=== PATIENT | male | born 1945 | race Caucasian/White ===

== ENCOUNTER 2022-07-20 10:13 | Emergency (ER) | payer OTHER, SELFPAY ==
[2022-07-20] MEDS ORDERED: Morphine 4 MG/ML VIAL ONE (10:30)
[2022-07-20] MEDS ORDERED: HYDROcodone/Acetaminophen 5/325 mg Tablet ONE (11:36)
== END 2022-07-20 11:49 | disposition home or self-care (01) ==
LOC: NAV ERS 10:13
DX: S43.014A Anterior dislocation of right humerus, initial encounter (principal); I10 Essential (primary) hypertension; E78.00 Pure hypercholesterolemia, unspecified; V92.09XA Drowning and submersion due to fall off unspecified watercraft, initial encounter; Z79.82 Long term (current) use of aspirin; Z79.899 Other long term (current) drug therapy
CPT/HCPCS: 23650; 96372; J2270